=== PATIENT | male | born 1990 ===

== ENCOUNTER 2020-12-02 22:36 | Outpatient (CLI) | payer SELFPAY | END 2020-12-02 22:37 | disposition EMS.NT | LOC: EMS 22:36 | DX: S50.872A Other superficial bite of left forearm, initial encounter (principal); S50.871A Other superficial bite of right forearm, initial encounter; W54.0XXA Bitten by dog, initial encounter; Y93.01 Activity, walking, marching and hiking ==

== ENCOUNTER 2022-01-30 08:00 | Outpatient (CLI) | payer SELFPAY ==
--- NOTE | 2022-01-30 14:03 | XRAY Report ---
PROCEDURE: Ankle 2 View LT INDICATIONS: L ANKLE PX TECHNIQUE: 2 views of the ankle were acquired. COMPARISON: None FINDINGS: Bones: Nondisplaced lucency is noted along the medial inferior talus seen only on AP view. Ankle mort ise is normally aligned. No suspicious bony lesions. Soft tissues: No tibiotalar joint effusion. Achilles tendon appears normal. IMPRESSION: Talar lucency as above suspected to be artifact. Recommend correlation of point tenderne ss and if concern persists, CT is recommended or follow-up imaging in 7-10 days. Reviewed by: Rosalba Ty MD on 01/30/2022 2:01 PM PST Approved by: Rosalba Ty MD on 01/30/2022 2:01 PM PST Station ID: [id number]
== END 2022-01-30 23:59 | disposition home or self-care (01) ==
LOC: DI.N 08:00
PROVIDERS: ATTEND Nurse Practitioner
DX: M25.572 Pain in left ankle and joints of left foot (principal)